=== PATIENT | female | born 1980 | race Caucasian/White ===

== ENCOUNTER 2017-01-01 10:44 | Emergency (ER) | payer BC ==
[2017-01-01 11:14] VITALS: RESP 18; TEMP 98.6
[2017-01-01] MEDS ORDERED: TDAP ADULT 0.5 ML INJ (BOOSTRIX) IM ONE (11:14)
--- NOTE | 2017-01-01 11:31 | EDPHY ---
H & P Time Seen by Provider: 01/01/17 11:09 HPI/ROS: This patient was carrying a box of boards from a deck demolition that had rest toenails protruding from the borders 1 of them was actually protruding through the box he was caring. She did notice distance sustained a laceration to the left 2nd finger-palmar aspect PIP joint region shortly prior to arrival at home. She reports moderate bleeding and 5/10 throbbing pain. She denies any other injuries. The incident occurred shortly prior to arrival she drove herself by private vehicle here for further evaluation. She reports that the bleeding was controlled with direct pressure and a bandage prior to arrival. ROS: Neuro: No numbness tingling in the affected finger. Musculoskeletal: No difficulty moving the affected finger. No other injuries. 5 point ROS is otherwise negative. Past Medical/Surgical History: Her last tetanus immunization was more than 7 years ago. Smoking Status: Never smoked Physical Exam: Physical Exam Vital signs are normal. General: No acute distress Cardiac: Brisk capillary refill is intact throughout. Pulses are 2+ and symmetric in the affected extremity. Skin: No rash or pallor. Extremities: Atraumatic normal except for left index finger Left index finger: Patient has a 1 cm full-thickness laceration at the palmar aspect-the IP joint region with subcutaneous tissue evident mild bleeding but no tendon injury or other deeper structures injured. No foreign bodies and direct examination. Neuro: Alert with no sensorimotor deficits in the affected finger. Constitutional: Initial Vital Signs Temperature (C) 37.0 C 01/01/17 11:12 Heart Rate 66 01/01/17 11:12 Respiratory Rate 18 01/01/17 11:12 Blood Pressure 125/89 H 01/01/17 11:12 O2 Sat (%) 100 01/01/17 11:12 O2 Delivery Mode Room Air Allergies/Adverse Reactions: codeine Allergy (Verified 01/01/17 11:12) doxycycline Allergy (Verified 01/01/17 11:12) morphine Allergy (Verified 01/01/17 11:12) Home Medications: Medication Instructions Recorded NK [No Known Home Meds] 01/01/17 MDM/Departure - MDM Procedures: Digital block: After verbal consent, using a 50 50 mix of 0.5% Marcaine 2% plain lidocaine, 27 gauge needle, chlorhexidine scrub under sterile conditions- 3 injections were administered to the base of the affected finger, 8 mL with good effect. Patient tolerated this well. There were no complications. Suture repair: After verbal consent proceeded as follows. The wound is 1 cm, full-thickness described physical exam The wound was copiously irrigated with saline. The wound was explored for foreign bodies and none were found. The wound was prepped and draped in the normal sterile fashion. The edges were reapproximated using 4 0 Prolene on a P3 needle-4 running sutures with good hemostasis and cosmesis. The patient tolerated the procedure well. There are no complications. Medications Given: Discontinued Medications Diphtheria/Tetanus/Acell Pertussis (Boostrix) 0.5 ml IM .ONCE ONE Stop: 01/01/17 11:15 Last Admin: 01/01/17 11:17 Dose: 0.5 ml ED Course/Re-evaluation: Patient placed in tube gauze dressing by our nurse and I counseled regarding wound care. Tetanus booster immunizations administered Discussion: Finger laceration without evidence of neurovascular compromise, bony injury, or other complications. - Depart Disposition: Home, Routine, Self-Care Clinical Impression: Finger laceration Qualifiers: Encounter type: initial encounter Finger: index finger Damage to nail status: unspecified Foreign body presence: without foreign body Laterality: left Qualified Code(s): S61.211A - Laceration without foreign body of left index finger without damage to nail, initial encounter Condition: Good Instructions: Finger Laceration (ED) Additional Instructions: Diagnosis: Finger laceration Plan: Keep the wound clean and dry for the next 2 days, then clean daily with warm soapy water Ibuprofen Tylenol for pain as needed This return for suture removal in 10-12 days Return sooner if he develops redness, discharge or other concerns for infection. Referrals: NONE *PRIMARY CARE P,. [Primary Care Provider] - As per Instructions
[2017-01-01 12:02] VITALS: BP 120/78; PULSE 62; O2SAT 98
== END 2017-01-01 12:02 | disposition home or self-care (01) ==
LOC: CED 10:44
PROC: 0HQGXZZ Repair Left Hand Skin, External Approach (ICD-10-PCS; principal; 2017-01-01)
DX: S61.211A Laceration without foreign body of left index finger without damage to nail, initial encounter (principal); W45.8XXA Other foreign body or object entering through skin, initial encounter